=== PATIENT | male | born 1975 | race Caucasian/White ===

== ENCOUNTER → 2016-06-18 | Outpatient (CLI) | payer MEDICAID ==
[~2016-06-18] MED LIST: ABIL5TAB5 PO; LEXA1TAB PO
== END ==
LOC: M WUC 17:51
PROVIDERS: ATTEND Physician Assistant
DX: Z00.00 Encounter for general adult medical examination without abnormal findings (principal)

== ENCOUNTER → 2016-06-21 | Outpatient (CLI) | payer MEDICAID | LOC: M WUC 18:24 | PROVIDERS: ATTEND Physician Assistant | DX: Z00.00 Encounter for general adult medical examination without abnormal findings (principal) ==

== ENCOUNTER 2018-01-15 17:57 | Emergency (ER) | payer OTHER ==
[2018-01-15] MEDS: CYCLOBENZAPRINE 10 MG TAB PO (19:28)
[2018-01-15] MEDS: KETOROLAC TROMETHAMINE 10 MG TAB PO (19:28)
== END 2018-01-15 19:35 | disposition home or self-care (01) ==
LOC: M ED 17:57
DX: M62.838 Other muscle spasm (principal); M54.12 Radiculopathy, cervical region; I25.2 Old myocardial infarction; F33.9 Major depressive disorder, recurrent, unspecified; F17.200 Nicotine dependence, unspecified, uncomplicated
CPT/HCPCS: 99283

== ENCOUNTER 2018-09-16 11:16 | Emergency (ER) | payer MEDICAID, OTHER, SELFPAY ==
[~2018-09-16] VITALS: Ht 177.8 cm; Wt 77.3 kg
[~2018-09-16 11:16] MED LIST changes: +ABIL1TAB11 PO; -ABIL5TAB5 PO; +CYCL10TA PO; +KETO10TAB PO
[2018-09-16 11:55] LABS: BASO # 0.1 10^3/uL (0.0-0.2); BASO % 0.7 % (0.0-1.0); EOS # 0.4 10^3/uL (0.0-0.50); EOS % 4.6 % (0.0-3.0); HEMATOCRIT 45.8 % (42.0-52.0); HEMOGLOBIN 15.6 g/dl (13.5-17.5); LYMPH # 3.5 10^3/uL (1.5-4.5); LYMPH % 40.3 % (24.0-44.0); MEAN CORPUSCULAR HEMOGLOBIN 29.3 pg (27.0-33.0); MEAN CORPUSCULAR HGB CONC 34.1 g/dl (32.0-36.5); MEAN CORPUSCULAR VOLUME 85.9 fl (80.0-96.0); MONO # 0.6 10^3/uL (0.0-0.8); MONO % 7.3 % (0.0-5.0); NEUTROPHILS # 4.1 10^3/uL (1.8-7.7); NEUTROPHILS % 46.8 % (36.0-66.0); PLATELET COUNT, AUTOMATED 309 10^3/uL (150-450); RED BLOOD COUNT 5.33 10^6/uL (4.30-6.10); WHITE BLOOD COUNT 8.7 10^3/uL (4.0-10.0)
[2018-09-16 12:18] LABS: BLOOD UREA NITROGEN 11 MG/DL (7-18); CALCIUM LEVEL 8.8 MG/DL (8.5-10.1); CARBON DIOXIDE LEVEL 29 MEQ/L (21-32); CHLORIDE LEVEL 105 MEQ/L (98-107); CPK CREATINE PHOSPHOKINASE 164 U/L (39-308); GLOMERULAR FILTRATION RATE > 60.0 (>60); GLUCOSE, FASTING 82 MG/DL (70-100); POTASSIUM SERUM 4.1 MEQ/L (3.5-5.1); SODIUM LEVEL 140 MEQ/L (136-145); TROPONIN I 0.36 NG/ML (< 0.10)
[2018-09-16] MEDS ORDERED: ASPIRIN 81 MG CHEW TABLET PO ONE (12:30)
[2018-09-16 14:40] LABS: MB/CK RELATIVE INDEX 1.29 (< OR =4); TROPONIN I 0.36 NG/ML (< 0.10)
[2018-09-16] MEDS ORDERED: ISOVUE-370 76% 100ML VIAL (Q9967) As Ordered ONE (15:03)
--- NOTE | 2018-09-16 15:47 | REP ---
CT of the chest with IV contrast, CT pulmonary artery angiography protocol: There are no emboli in the pulmonary trunk or central pulmonary arteries. There are no emboli in the pulmonary lobe or segment branches. There are no infiltrates or pleural effusions. There are no pulmonary masses or nodules. There is dependent atelectasis in the posterior lung benedict. There is no mediastinal, hilar or axillary lymph node enlargement. The thoracic aorta is unremarkable. Cardiac size is normal. The visualized upper abdominal contents are unremarkable. Impression: There are no pulmonary emboli. Dependent atelectasis. Otherwise, negative CT study of the chest. Electronically Signed by Jonah Garcia MD 09/16/2018 03:39 P
--- NOTE | 2018-09-16 15:48 | REP ---
Portable chest, 11:39 a.m., single AP semi upright view: Comparison is 03/25/2017. The lung benedict are clear. The cardiac size is normal. The anitra, mediastinum, and skeletal structures are unremarkable. Impression: Negative portable chest. No interval change. Electronically Signed by Jonah Garcia MD 09/16/2018 03:40 P
[2018-09-16] MEDS ORDERED: NAPR-837 PO (16:08)
[2018-09-16 17:07] VITALS: BP 127/69
--- NOTE | 2018-09-17 08:16 | ECGEPIP ---
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
--- NOTE | 2018-09-17 08:18 | ECGEPIP ---
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
== END 2018-09-16 17:08 | disposition home or self-care (01) ==
LOC: M ED 11:16
DX: R07.89 Other chest pain (principal); R00.0 Tachycardia, unspecified; I51.7 Cardiomegaly; F32.9 Major depressive disorder, single episode, unspecified; Z72.0 Tobacco use; J98.11 Atelectasis
CPT/HCPCS: 71045; 71275; 80048; 82550; 82553; 85025; 93005; 93041; 94760; 99285; Q9967

== ENCOUNTER 2018-10-20 13:00 | Emergency (ER) | payer MEDICAID, OTHER ==
[~2018-10-20] VITALS: Ht 180.3 cm; Wt 77.3 kg
[~2018-10-20 13:00] MED LIST changes: +NAPR-837 PO
[2018-10-20] MEDS ORDERED: IBUPROFEN 800 MG TAB PO ONE (14:00)
--- NOTE | 2018-10-20 14:04 | REP ---
Right ankle: Four views. History: Injury in a fall. Findings: Four views right ankle demonstrate anterior lateral and posterior ankle swelling. No fractures seen. Ankle mortise is intact. No opaque foreign body. Impression: Diffuse periarticular swelling at the ankle. No fracture seen. Electronically Signed by Bhanu Varghese MD 10/20/2018 01:55 P
--- NOTE | 2018-10-20 14:51 | REP ---
RIGHT FOOT, FOUR VIEWS: HISTORY: Trauma. There is no acute fracture or dislocation. The joint spaces are normal in appearance. IMPRESSION: There is no acute fracture or dislocation. Electronically Signed by Santos Goldberg MD 10/20/2018 02:56 P
[2018-10-20 15:10] VITALS: BP 114/69
== END 2018-10-20 15:13 | disposition home or self-care (01) ==
LOC: M ED 13:00
DX: S93.401A Sprain of unspecified ligament of right ankle, initial encounter (principal); W17.2XXA Fall into hole, initial encounter; Y92.89 Other specified places as the place of occurrence of the external cause; R07.9 Chest pain, unspecified; I10 Essential (primary) hypertension; F17.290 Nicotine dependence, other tobacco product, uncomplicated; Z79.1 Long term (current) use of non-steroidal anti-inflammatories (NSAID)

== ENCOUNTER 2018-12-01 20:03 | Emergency (ER) | payer OTHER ==
[~2018-12-01] VITALS: Ht 177.8 cm; Wt 67.9 kg
[2018-12-01 20:04] VITALS: BP 123/69
[2018-12-01 22:23] LABS: HEMATOCRIT 44.4 % (42.0-52.0); HEMOGLOBIN 15.2 g/dl (13.5-17.5); MEAN CORPUSCULAR HEMOGLOBIN 29.8 pg (27.0-33.0); MEAN CORPUSCULAR HGB CONC 34.2 g/dl (32.0-36.5); MEAN CORPUSCULAR VOLUME 87.1 fl (80.0-96.0); PLATELET COUNT, AUTOMATED 210 10^3/uL (150-450); WHITE BLOOD COUNT 8.8 10^3/uL (4.0-10.0)
[2018-12-01 22:34] LABS: INR 0.9; PROTHROMBIN TIME 11.9 SECONDS (11.8-14.0)
[2018-12-01 22:35] LABS: PARTIAL THROMBOPLASTIN TIME 27.4 SECONDS (25.0-38.4)
[2018-12-01 22:43] LABS: BLOOD UREA NITROGEN 15 MG/DL (7-18); CALCIUM LEVEL 8.8 MG/DL (8.5-10.1); CARBON DIOXIDE LEVEL 30 MEQ/L (21-32); CHLORIDE LEVEL 105 MEQ/L (98-107); CREATININE FOR GFR 0.95 MG/DL (0.70-1.30); GLOMERULAR FILTRATION RATE > 60.0 (>60); GLUCOSE, FASTING 94 MG/DL (70-100); POTASSIUM SERUM 4.6 MEQ/L (3.5-5.1); SODIUM LEVEL 141 MEQ/L (136-145)
[2018-12-01 22:47] LABS: ATYPICAL LYMPH 3 % (0-5); BASOPHILS 1 % (0-4); EOSINOPHILS 6 % (0-5); LYMPHOCYTES 41 % (16-52); MONOCYTES 2 % (0-8); NEUTROPHILS 47 % (35-75); PLATELET ESTIMATE NORMAL (NORMAL)
--- NOTE | 2018-12-01 23:19 | REPVR ---
EXAM: US Duplex Right Upper Extremity Veins, Limited EXAM DATE/TIME: 12/01/2018 10:47 PM CLINICAL HISTORY: 43 years old, male; Other: Bruising, tenderness, warm; Additional info: Idiopathic bruising, tenderness, warmth TECHNIQUE: Imaging protocol: Real-time Duplex ultrasound of the Right Upper Extremity with 2-D mortensen scale, color Doppler flow and spectral waveform analysis. Limited exam focused on the right upper extremity veins. COMPARISON: No relevant prior studies available. FINDINGS: Right deep veins: Unremarkable. Axillary and brachial veins are patent throughout without thrombus. Normal Doppler waveforms. Normal compressibility and/or augmentation response. Visualized internal jugular and subclavian veins are patent. Right superficial veins: Unremarkable. Visualized cephalic and basilic veins are patent without thrombus. Soft tissues: Unremarkable. IMPRESSION: No sonographic evidence of deep vein thrombosis. Electronically signed by: Sathish Rubalcava On 12/01/2018 23:18:43 PM
[2018-12-01] MEDS ORDERED: IBUPROFEN 600 MG TAB PO ONE (23:30)
[2018-12-01] MEDS ORDERED: traMADol 50 MG TAB PO ONE (23:30)
== END 2018-12-01 23:31 | disposition home or self-care (01) ==
LOC: M ED 20:03
DX: S40.021A Contusion of right upper arm, initial encounter (principal); M79.89 Other specified soft tissue disorders; X58.XXXA Exposure to other specified factors, initial encounter; Y92.89 Other specified places as the place of occurrence of the external cause; I25.2 Old myocardial infarction; F17.200 Nicotine dependence, unspecified, uncomplicated

== ENCOUNTER → 2019-07-06 | Outpatient (CLI) | payer OTHER ==
[2019-07-06 13:56] LABS: ALBUMIN 3.7 GM/DL (3.2-5.2); BILIRUBIN,DIRECT 0.1 MG/DL (0.0-0.2); BILIRUBIN,TOTAL 0.3 MG/DL (0.2-1.0); TOTAL PROTEIN 7.3 GM/DL (6.4-8.2); VALPROIC ACID (DEPAKOTE) 3.6 UG/ML (50.0-100.0)
== END ==
LOC: M LAB 12:53
PROVIDERS: ATTEND Nurse Practitioner Family
DX: F11.20 Opioid dependence, uncomplicated (principal); F31.9 Bipolar disorder, unspecified

== ENCOUNTER → 2019-07-29 | Outpatient (CLI) | payer OTHER ==
[2019-07-29 10:15] LABS: ALBUMIN 3.5 GM/DL (3.2-5.2); ALT/SGPT 16 U/L (12-78); BILIRUBIN,TOTAL 0.2 MG/DL (0.2-1.0); BLOOD UREA NITROGEN 10 MG/DL (7-18); CALCIUM LEVEL 8.7 MG/DL (8.5-10.1); CARBON DIOXIDE LEVEL 30 MEQ/L (21-32); CHLORIDE LEVEL 106 MEQ/L (98-107); CHOLESTEROL LEVEL 187 MG/DL (<200); CHOLESTEROL RISK RATIO 5.843 (<5); CREATININE FOR GFR 0.88 MG/DL (0.70-1.30); FREE T4 1.08 NG/DL (0.76-1.46); GLOMERULAR FILTRATION RATE > 60.0 (>60); GLUCOSE, FASTING 98 MG/DL (70-100); HDL CHOLESTEROL 32 MG/DL (>40); LDL CHOLESTEROL 110 MG/DL (<100); NON-HDL-C 155 MG/DL; POTASSIUM SERUM 4.2 MEQ/L (3.5-5.1); SODIUM LEVEL 140 MEQ/L (136-145); TOTAL PROTEIN 6.8 GM/DL (6.4-8.2); TRIGLYCERIDES LEVEL 227 MG/DL (<150)
[2019-07-29 10:19] LABS: HEPATITIS B SURFACE ANTIGEN NEGATIVE (NEGATIVE)
== END ==
LOC: M LAB 08:44
PROVIDERS: ATTEND Hospitalist
DX: Z13.79 Encounter for other screening for genetic and chromosomal anomalies (principal)

== ENCOUNTER → 2019-08-07 | Outpatient (CLI) | payer OTHER ==
--- NOTE | 2019-08-07 11:12 | ECHO ---
DATE OF STUDY: 08/07/2019 DATE OF : 1975 MEDICAL RECORD: [id number] REFERRING PHYSICIAN: Rafy Biswas DO INDICATION: Orthopnea. HEIGHT: 5 feet 10 inches. WEIGHT: 156 pounds. 2-D MEASUREMENTS: Left ventricle diastole: 4.6 cm Left ventricle systole: 3.3 cm Ventricular septum: 0.83 cm Posterior wall: 0.86 cm LVOT: 2.2 cm Aortic root: 3.0 cm Left atrium: 2.9 cm Inferior vena cava: 1.70 cm (normal respiratory variation, CVP estimated to be 5-10 mmHg) DOPPLER MEASUREMENTS: Aortic valve velocity: 101 cm/sec LVOT velocity: 84.2 cm/sec No aortic stenosis No aortic regurgitation Very mild mitral regurgitation Trace tricuspid regurgitation, within normal limits Trace pulmonic regurgitation Mitral E velocity: 55.3 cm/sec Mitral A velocity: 45.8 cm/sec Pulmonary acceleration time: 123 ms MITRAL ANNULAR TISSUE DOPPLER: E prime septal: 7.4 cm/sec E prime lateral: 9.0 cm/sec DESCRIPTION: The rhythm was sinus. Image quality was good. No pericardial effusion. This was a 2-D, M-mode, color flow Doppler and pulse wave Doppler examination and included mitral annular tissue Doppler. CONCLUSIONS: 1. Normal echocardiogram Doppler. 2. Normal left ventricle internal dimensions and wall thickness. Normal regional LV wall motion and wall thickening. Normal LV systolic function. Normal diastolic function. 3. Suggestive of normal pulmonary artery systolic pressure.
== END ==
LOC: M CARPUL 09:04
PROVIDERS: ATTEND Hospitalist
DX: R06.01 Orthopnea (principal)

== ENCOUNTER 2019-09-01 16:09 | Emergency (ER) | payer OTHER ==
[~2019-09-01] VITALS: Ht 177.8 cm; Wt 71.4 kg
[~2019-09-01 16:09] MED LIST changes: -BUPR150T3; -BUPREN/NALOX; -CLON-412; -DIVA500T9; -HYDR50TA70; -LEVO50TA5; -RISP0.5T3; -SUBO8MIS SL; -TRAZ-257; -VITA-145
[2019-09-01] MEDS ORDERED: DIVA500T9 (16:17)
[2019-09-01] MEDS ORDERED: HYDR50TA70 (16:17)
[2019-09-01] MEDS ORDERED: BUPREN/NALOX (16:17)
[2019-09-01] MEDS ORDERED: TRAZ-257 (16:17)
[2019-09-01] MEDS ORDERED: RISP0.5T3 (16:17)
[2019-09-01] MEDS ORDERED: CLON-412 (16:17)
[2019-09-01] MEDS ORDERED: BUPR150T3 (16:17)
[2019-09-01] MEDS ORDERED: LEVO50TA5 (16:38)
[2019-09-01] MEDS ORDERED: SUBO8MIS SL (16:38)
[2019-09-01] MEDS ORDERED: VITA-145 (16:38)
[2019-09-01 16:51] VITALS: O2SAT 100
[2019-09-01 20:05] VITALS: BP 110/60
== END 2019-09-01 20:05 | disposition home or self-care (01) ==
LOC: M ED 16:09
DX: R79.89 Other specified abnormal findings of blood chemistry (principal); I10 Essential (primary) hypertension; F33.9 Major depressive disorder, recurrent, unspecified; Z79.899 Other long term (current) drug therapy; Z79.891 Long term (current) use of opiate analgesic; F17.210 Nicotine dependence, cigarettes, uncomplicated

== ENCOUNTER → 2019-09-01 | Outpatient (CLI) | payer OTHER ==
[~2019-09-01] MED LIST changes: +BUPR150T3; +BUPREN/NALOX; +CLON-412; +DIVA500T9; +HYDR50TA70; +LEVO50TA5; +RISP0.5T3; +SUBO8MIS SL; +TRAZ-257; +VITA-145
[2019-09-01 12:22] LABS: BASO # 0.1 10^3/uL (0.0-0.2); BASO % 1.2 % (0.0-1.0); EOS # 0.5 10^3/uL (0.0-0.5); EOS % 8.4 % (0.0-3.0); HEMATOCRIT 45.9 % (42.0-52.0); LYMPH # 2.4 10^3/uL (1.5-5.0); LYMPH % 40.6 % (24.0-44.0); MEAN CORPUSCULAR HEMOGLOBIN 28.1 pg (27.0-33.0); MEAN CORPUSCULAR HGB CONC 32.7 g/dl (32.0-36.5); MEAN CORPUSCULAR VOLUME 86.1 fl (80.0-96.0); MONO # 0.6 10^3/uL (0.0-0.8); MONO % 9.8 % (0.0-5.0); NEUTROPHILS # 2.4 10^3/uL (1.5-8.5); NEUTROPHILS % 39.7 % (36.0-66.0); PLATELET COUNT, AUTOMATED 343 10^3/uL (150-450); RED BLOOD COUNT 5.33 10^6/uL (4.30-6.10); WHITE BLOOD COUNT 5.9 10^3/uL (4.0-10.0)
[2019-09-01 12:53] LABS: ALBUMIN 3.5 GM/DL (3.2-5.2); ALT/SGPT 14 U/L (12-78); BILIRUBIN,TOTAL 0.3 MG/DL (0.2-1.0); BLOOD UREA NITROGEN 12 MG/DL (7-18); CALCIUM LEVEL 9.1 MG/DL (8.5-10.1); CARBON DIOXIDE LEVEL 30 MEQ/L (21-32); CHLORIDE LEVEL 105 MEQ/L (98-107); CREATININE FOR GFR 0.92 MG/DL (0.70-1.30); GLOMERULAR FILTRATION RATE > 60.0 (>60); GLUCOSE, FASTING 81 MG/DL (70-100); POTASSIUM SERUM 4.3 MEQ/L (3.5-5.1); SODIUM LEVEL 140 MEQ/L (136-145); TOTAL PROTEIN 7.3 GM/DL (6.4-8.2); VALPROIC ACID (DEPAKOTE) 44.3 UG/ML (50.0-100.0)
== END ==
LOC: M LAB 11:36
PROVIDERS: ATTEND Nurse Practitioner Family
DX: F31.9 Bipolar disorder, unspecified (principal)

== ENCOUNTER → 2019-09-01 | Outpatient (CLI) | payer OTHER ==
[2019-09-01 12:22] LABS: BASO # 0.1 10^3/uL (0.0-0.2); BASO % 1.7 % (0.0-1.0); EOS # 0.5 10^3/uL (0.0-0.5); EOS % 8.1 % (0.0-3.0); HEMATOCRIT 44.7 % (42.0-52.0); LYMPH # 2.5 10^3/uL (1.5-5.0); LYMPH % 41.5 % (24.0-44.0); MEAN CORPUSCULAR HEMOGLOBIN 29.1 pg (27.0-33.0); MEAN CORPUSCULAR HGB CONC 33.6 g/dl (32.0-36.5); MEAN CORPUSCULAR VOLUME 86.8 fl (80.0-96.0); MONO # 0.5 10^3/uL (0.0-0.8); MONO % 9.1 % (0.0-5.0); NEUTROPHILS # 2.3 10^3/uL (1.5-8.5); NEUTROPHILS % 39.4 % (36.0-66.0); PLATELET COUNT, AUTOMATED 344 10^3/uL (150-450); RED BLOOD COUNT 5.15 10^6/uL (4.30-6.10); WHITE BLOOD COUNT 5.9 10^3/uL (4.0-10.0)
[2019-09-01 12:54] LABS: RHEUMATOID FACTOR QUANT < 10.0 IU/ML (<15.0); TROPONIN I < 0.02 NG/ML (< 0.10)
== END ==
LOC: M LAB 11:31
PROVIDERS: ATTEND Family Medicine
DX: R06.00 Dyspnea, unspecified (principal)

== ENCOUNTER → 2019-09-30 | Outpatient (CLI) | payer OTHER ==
[~2019-09-30] MED LIST changes: +BUPR150T3; +BUPREN/NALOX; +CLON-412; +CYCL-707 PO; -CYCL10TA PO; +DIVA500T9; +HYDR50TA70; +LEVO50TA5; +RISP0.5T3; +SUBO8MIS SL; +TRAZ-257; +VITA-145
--- NOTE | 2019-09-30 17:39 | PFTRPT ---
Site: [facility], [address] [place] [address], [id number] ID: [id number] Name: WILBERT MYERS Visit Date: 09/30/2019 Second ID: [id number] Referring Doctor: MD Hale Ryan Reviewing Doctor: Esdras Miranda MD Parts Classifier: Antonia Edwards Age: 44 : 1975 Sex: Male Race: Height: 70.00 Inches Weight: 153.00 Lbs BSA: 1.86 Order IDs: [id number] Requested Test(s): <RESP-PFT.DLCO> Diagnosis: R06 this test meet the ATS standards for acceptability and repeatability. IVC is less than 90% of VC. DLCO may be underestimated. Pt was given four puffs of albuterol for postbronchodilator. Review Status: Not Reviewed Pre-Bronch Post-Bronch Pred Actual %Pred Actual %Chng SPIROMETRY FVC (L) 5.24 3.46 66 3.14 -9 FEV1 (L) 4.15 2.42 58 2.38 -1 FEV1/FVC (%) 79 70 88 76 8 FEF 25% (L/sec) 7.42 3.04 41 3.45 13 FEF 50% (L/sec) 4.72 2.34 49 2.01 -14 FEF 75% (L/sec) 1.73 1.06 61 0.81 -23 FEF 25-75% (L/sec) 3.85 1.96 50 1.65 -15 FEF Max (L/sec) 10.11 3.20 31 3.98 24 FIVC (L) 2.28 1.93 -15 FIF 50% (L/sec) 5.18 1.62 31 1.73 7 FIF Max (L/sec) 1.75 2.06 17 MVV (L/min) 162 67 41 Expiratory Time (sec) 7.25 6.86 -5 Back Extrap Vol (L) 0.14 0.09 -31 Time To FEFmax (sec) 0.199 0.124 -37 LUNG VOLUMES SVC (L) 5.06 3.20 63 IC (L) 3.46 1.60 46 ERV (L) 1.60 1.59 99 TGV (L) 3.48 3.21 92 RV (Pleth) (L) 1.88 1.61 85 TLC (Pleth) (L) 6.94 4.81 69 RV/TLC (Pleth) (%) 27 34 124 DIFFUSION DLCOunc (ml/min/mmHg) 32.45 19.04 58 DLCOcor (ml/min/mmHg) 32.45 20.66 63 DL/VA (ml/min/mmHg/L) 4.68 5.00 106 VA (L) 6.94 4.13 59 BHT (sec) 11.28 IVC (L) 2.93 TLC (SB) (L) 4.28 AIRWAYS RESISTANCE Raw (cmH2O/L/s) 1.45 1.77 122 Gaw (L/s/cmH2O) 1.03 0.57 55 sRaw (cmH2O*s) 4.76 6.22 130 sGaw (1/cmH2O*s) 0.20 0.16 80 BLOOD GASES Hgb (gm/dL) 12.1
== END ==
LOC: M CARPUL 16:55
PROVIDERS: ATTEND Family Medicine
DX: R06.00 Dyspnea, unspecified (principal)

== ENCOUNTER → 2020-06-30 | Outpatient (REF) | payer OTHER ==
[~2020-06-30] MED LIST changes: -BUPR150T3; +BUPR150T4; +RISP-7; -RISP0.5T3; -VITA-145; +VITAD1000T
== END ==
LOC: M SFHCPLAZ 15:47
DX: E03.9 Hypothyroidism, unspecified (principal)

== ENCOUNTER → 2021-08-17 | Outpatient (CLI) | payer OTHER ==
[~2021-08-17] MED LIST changes: +BUPR150T12; -BUPR150T4
== END ==
LOC: M PLAIMG 10:10
PROVIDERS: ATTEND Physician Assistant
DX: J43.1 Panlobular emphysema (principal)

== ENCOUNTER 2021-09-03 22:40 | Emergency (ER) | payer OTHER ==
[~2021-09-03] VITALS: Ht 180.3 cm; Wt 75.2 kg
[2021-09-04] MEDS ORDERED: APIXABAN 5 MG TAB (ELIQUIS) PO ONE (00:30)
[2021-09-04] MEDS ORDERED: BUPRENORPHINE/NALOXONE 8-2MG SUBLINGUAL TABLET(SUBOXONE) SL STA (00:36)
[2021-09-04 01:13] LABS: BASO # 0.1 10^3/uL (0.0-0.2); BASO % 0.9 % (0.0-1.0); EOS # 0.5 10^3/uL (0.0-0.5); EOS % 6.7 % (0.0-3.0); HEMATOCRIT 39.6 % (42.0-52.0); HEMOGLOBIN 13.6 g/dl (13.5-17.5); LYMPH % 38.9 % (24.0-44.0); MEAN CORPUSCULAR HEMOGLOBIN 28.6 pg (27.0-33.0); MEAN CORPUSCULAR HGB CONC 34.3 g/dl (32.0-36.5); MEAN CORPUSCULAR VOLUME 83.4 fl (80.0-96.0); MONO # 0.7 10^3/uL (0.0-0.8); MONO % 9.1 % (2.0-8.0); NEUTROPHILS # 3.4 10^3/uL (1.5-8.5); NEUTROPHILS % 44.3 % (36.0-66.0); PLATELET COUNT, AUTOMATED 336 10^3/uL (150-450); RED BLOOD COUNT 4.75 10^6/uL (4.30-6.10); WHITE BLOOD COUNT 7.8 10^3/uL (4.0-10.0)
[2021-09-04] MEDS ORDERED: ISOVUE-370 76% 100ML VIAL As Ordered ONE (01:33)
[2021-09-04 01:34] LABS: BLOOD UREA NITROGEN 16 MG/DL (7-18); CALCIUM LEVEL 8.5 MG/DL (8.5-10.1); CARBON DIOXIDE LEVEL 27 MEQ/L (21-32); CHLORIDE LEVEL 107 MEQ/L (98-107); CREATININE FOR GFR 0.76 MG/DL (0.70-1.30); GLOMERULAR FILTRATION RATE > 60.0 (>60); GLUCOSE, FASTING 92 MG/DL (70-100); SODIUM LEVEL 138 MEQ/L (136-145)
[2021-09-04] MEDS ORDERED: ELIQ5TAB PO (02:49)
[2021-09-04 03:08] VITALS: BP 128/79
[2021-09-05] MEDS ORDERED: ELIQ5TAB PO (14:51)
== END 2021-09-04 03:12 | disposition home or self-care (01) ==
LOC: M ED 22:40
DX: I26.99 Other pulmonary embolism without acute cor pulmonale (principal); I82.402 Acute embolism and thrombosis of unspecified deep veins of left lower extremity; K76.9 Liver disease, unspecified; I25.2 Old myocardial infarction; Z86.73 Personal history of transient ischemic attack (TIA), and cerebral infarction without residual deficits; Z79.899 Other long term (current) drug therapy; Z79.891 Long term (current) use of opiate analgesic; Z79.890 Hormone replacement therapy; Z79.01 Long term (current) use of anticoagulants; F17.210 Nicotine dependence, cigarettes, uncomplicated; F15.21 Other stimulant dependence, in remission
CPT/HCPCS: 36415; 71275; 80048; 82550; 85025; 93005; 93971; 99284; Q9967

== ENCOUNTER 2021-09-05 14:25 | Emergency (ER) | payer OTHER ==
[~2021-09-05] VITALS: Ht 180.3 cm; Wt 72.5 kg
[~2021-09-05 14:25] MED LIST changes: +ELIQ5TAB PO
[2021-09-05] MEDS ORDERED: ELIQ5TAB PO (14:51)
[2021-09-05 18:10] VITALS: BP 122/56
== END 2021-09-05 18:13 | disposition home or self-care (01) ==
LOC: M ED 14:25
DX: R22.42 Localized swelling, mass and lump, left lower limb (principal); Z86.711 Personal history of pulmonary embolism; Z86.718 Personal history of other venous thrombosis and embolism; K76.9 Liver disease, unspecified; I25.2 Old myocardial infarction; Z86.73 Personal history of transient ischemic attack (TIA), and cerebral infarction without residual deficits; Z79.899 Other long term (current) drug therapy; Z79.890 Hormone replacement therapy; Z79.01 Long term (current) use of anticoagulants; F17.210 Nicotine dependence, cigarettes, uncomplicated

== ENCOUNTER → 2021-10-04 | Outpatient (CLI) | payer OTHER | LOC: M PLALAB 14:48 | DX: I26.99 Other pulmonary embolism without acute cor pulmonale (principal) ==

== ENCOUNTER → 2021-10-17 | Outpatient (CLI) | payer OTHER | LOC: M SLEEP HO 09-28 13:23 | PROVIDERS: ATTEND Physician Assistant | DX: G47.30 Sleep apnea, unspecified (principal) ==